=== PATIENT | female | born 1980 | race Caucasian/White ===

== ENCOUNTER 2022-02-28 08:01 | Emergency (ER) | payer OTHER ==
[2022-02-28] MEDS ORDERED: Acetaminophen/Codeine 30-300mg Tablet ONE (09:42)
[2022-02-28] MEDS ORDERED: predniSONE 20 MG TAB ONE (09:42)
== END 2022-02-28 09:48 | disposition home or self-care (01) ==
LOC: ERS 08:01
DX: R05.9 Cough, unspecified (principal); R06.2 Wheezing; F17.210 Nicotine dependence, cigarettes, uncomplicated
CPT/HCPCS: 71046; 93005; J7512

== ENCOUNTER 2022-04-14 08:42 | Emergency (ER) | payer OTHER ==
[2022-04-14] MEDS ORDERED: Iopamidol-370 76% 500 ML 1 ML ONE (08:53)
[2022-04-14] MEDS ORDERED: Magnesium 2 GM/50 ML BAG (IN WATER) ONE (09:22)
[2022-04-14] MEDS ORDERED: diphenhydrAMINE 50 MG/ML VIAL ONE (09:22)
[2022-04-14] MEDS ORDERED: Prochlorperazine 10 MG/2 ML VIAL ONE (09:22)
[2022-04-14] MEDS ORDERED: methylPREDNISolone Sod Succ/PF 125 MG/2 ML VIAL ONE (09:22)
[2022-04-14 09:29] LABS: #Eosinphils 0.5 thou/uL (0.0-0.7); #Lymphocytes 1.9 thou/uL (1.20-3.40); #Monocytes 0.5 thou/uL (0.11-0.59); #Neutrophils 6.8 thou/uL (1.40-6.50); %Basophils 0.4 % (0.0-1.0); %Eosinophils 5.3 % (0.0-10.0); %Lymphocytes 19.1 % (21.0-51.0); %Monocytes 5.4 % (0.0-10.0); %Neutrophils 69.8 % (42.0-75.0); Hemoglobin 12.8 g/dL (12.0-16.0); Mean Corpuscular HGB CONC 34.4 g/dL (32.0-36.0); Mean Corpuscular Hemoglobin 32.6 pg (27.0-31.0); Mean Corpuscular Volume 94.9 fL (78.0-98.0); Mean Platelet Volume 5.2 fL (7.4-10.4); Platelet Count 418 thou/uL (130-400); RBC Distribution Width 12.5 % (11.5-14.5); Red Blood Cell (RBC) Count 3.93 mill/uL (4.20-5.40); White Blood Cell (WBC) Count 9.8 thou/uL (4.8-10.8)
[2022-04-14 09:40] LABS: BHCG - Serum Negative (NEGATIVE); Pregs Control Background? CLEAR/WHITE (CLR/WHITE); Pregs Control Bar Appear? YES (CONTROL BAR)
[2022-04-14 09:42] LABS: INR-International Normal Ratio 0.9; PTT 26.6 sec (22.9-36.1); Prothrombin Time 12.1 sec (12.0-14.7)
[2022-04-14 09:43] LABS: D-Dimer Test 0.35 *mcg/mL (0.27-0.43)
[2022-04-14 09:54] LABS: ALT (SGPT) 7 U/L (8-55); AST (SGOT) 14 U/L (5-34); Albumin 3.7 g/dL (3.5-5.0); Alkaline Phosphatase 76 U/L (40-110); Anion Gap 11 mmol/L (10-20); BUN (Urea Nitrogen) 7 mg/dL (7.0-18.7); Bilirubin, Total 0.3 mg/dL (0.2-1.2); Calc. Creatinine Clearance 0 mL/min (70-130); Calcium 8.2 mg/dL (7.8-10.44); Carbon Dioxide 24 mmol/L (22-29); Chloride 104 mmol/L (98-107); Globulin 2.7 g/dL (2.4-3.5); Glucose 96 mg/dL (70-105); Lipase 19 U/L (8-78); Potassium 4.1 mmol/L (3.5-5.1); Protein, Total 6.4 g/dL (6.0-8.3); Sodium 135 mmol/L (136-145)
[2022-04-14 12:44] LABS: Troponin I Less than 0.010 ng/mL (< 0.028)
== END 2022-04-14 13:12 | disposition home or self-care (01) ==
LOC: ERS 08:42
DX: R51.9 Headache, unspecified (principal); R07.89 Other chest pain; F17.210 Nicotine dependence, cigarettes, uncomplicated; Z79.899 Other long term (current) drug therapy
CPT/HCPCS: 36415; 70450; 70496; 70498; 71045; 80053; 83690; 83735; 84484; 84703; 85025; 85379; 85610; 85730; 93005; 96374; 96375; J0780; J1200; J2930; J3475; Q9967

== ENCOUNTER 2022-04-16 00:47 | Emergency (ER) | payer OTHER, SELFPAY ==
[2022-04-16] MEDS ORDERED: Proparacaine 0.5% Opth 15 ML BOT ONE (01:33)
[2022-04-16] MEDS ORDERED: Fluorescein Opthalmic Strip ONE (01:33)
== END 2022-04-16 02:00 | disposition home or self-care (01) ==
LOC: ERS 00:47
DX: S05.01XA Injury of conjunctiva and corneal abrasion without foreign body, right eye, initial encounter (principal); F17.210 Nicotine dependence, cigarettes, uncomplicated; Z79.899 Other long term (current) drug therapy
CPT/HCPCS: 99282

== ENCOUNTER 2022-05-18 16:34 | Emergency (ER) | payer SELFPAY | END 2022-05-18 16:56 | disposition home or self-care (01) | LOC: ERS 16:34 | DX: L50.8 Other urticaria (principal); F17.210 Nicotine dependence, cigarettes, uncomplicated; Z79.899 Other long term (current) drug therapy | CPT/HCPCS: 99282 ==